=== PATIENT | female | born 1990 ===

== ENCOUNTER 2025-06-10 06:35 | Day surgery (SDC) | payer BC, SELFPAY ==
[2025-06-06 11:55] LABS: Hematocrit 41.6 % (37.0-47.0); Hemoglobin 13.8 g/dL (12.0-16.0); Mean Corp Hgb Conc. 33.2 g/dL (33.0-37.0); Mean Corpuscular Volume 87.0 fL (81.0-99.0); Platelet Count 250 10^3/uL (130-400); Red Cell Dist. Width 13.0 % (11.5-14.5)
[2025-06-06 12:02] LABS: INR 1.03; PT 13.6 Sec (11.4-14.6)
[2025-06-06 12:03] LABS: APTT 29.4 Sec (23.4-35.0)
[2025-06-06 12:42] LABS: ALT (SGPT) 12 U/L (0-35); AST (SGOT) 19 U/L (14-36); Albumin 4.6 g/dl (3.5-5.0); Alkaline Phosphatase 51 U/L (38-126); Blood Urea Nitrogen 14 mg/dl (7-17); Calcium 9.4 mg/dl (8.4-10.2); Carbon Dioxide 27 mmol/L (22-30); Chloride 102 mmol/L (98-107); Glucose 98 mg/dl (70-99); Potassium 4.1 mmol/L (3.5-5.1); Sodium 138 mmol/L (135-145); Total Protein 7.6 g/dl (6.3-8.2); eGFR > 60.00
[2025-06-06 13:18] VITALS: BMI 26.3
[2025-06-10] VITALS (8 sets, daily range): BP systolic 113–137; BP diastolic 62–89; BMI 26.3
[2025-06-10] MEDS: NORMOSOL-R/PLASMALYTE-A 1000 IV (12:47)
[2025-06-10] MEDS: NEURONTIN 300 MG PO (12:48)
[2025-06-10] MEDS: TYLENOL 1000 MG PO (12:48)
[2025-06-10] MEDS: HEPARIN 5000 UNITS SC (14:51)
[2025-06-10] MEDS: DILAUDID 0.25 MG IV (16:41)
[2025-06-10] MEDS: ROXICODONE 5 MG PO (17:52)
--- NOTE | 2025-06-10 18:34 | OR.RPT ---
Operative Report
Operative Report
DATE OF OPERATION: June 10, 2025
PREOPERATIVE DIAGNOSIS: Right Thyroid Cancer - C73
POSTOPERATIVE DIAGNOSIS: Same
SURGEON: Demetri Oropeza M.D.
OPERATION: Right Total Thyroidectomy and Limited Neck Dissection - 28823
ANESTHESIA: GET
ESTIMATED BLOOD LOSS: 5 cc
DRAINS: None
SPECIMEN: right total thyroid lobe and isthmus, and right level paratracheal tissue
FINDINGS: Right thyroid nodule
COMPLICATIONS: None
PROCEDURE:
The patient was taken to the operating room and placed in the usual supine position. After adequate general endotracheal anesthesia was established, the patient�s neck was extended, prepped, and draped in the typical sterile fashion. A 5 cm
transcervical incision was made two fingerbreadths above the sternal notch. The skin incision was made with the #15 blade, which was taken through the skin into the subcutaneous tissue. The underlying platysma muscle was divided, and subplatysmal
flaps were created superiorly to the thyroid cartilage and inferiorly to the sternal notch. Strap muscles were identified and at the midline.
Attention was turned to the patient�s right thyroid lobe. The right thyroid lobe was mobilized medially. During this process, the right middle thyroid vein and inferior thyroid artery were dissected and ligated with Ligasure. Next, the right
superior pole was taken down by dissecting and transecting the superior pole vessels with a Ligasure. The right thyroid lobe was mobilized medially. During this process, the right recurrent laryngeal nerve was identified and preserved throughout its
entire course. The right superior parathyroid gland was identified and preserved. The right thyroid lobe with isthmus was resected from the trachea and sent to the pathology department.
During this process, the left recurrent laryngeal nerve was identified and preserved throughout its entire course. The left superior parathyroid gland was identified and preserved. The left thyroid lobe with isthmus was resected from the trachea and
sent to the pathology department.
At this time, the right neck dissection was performed. The tissue between the right carotid artery to the trachea into the anterior mediastinum was carefully dissected. The previously identified recurrent laryngeal nerve and parathyroid glands were
preserved. The tissue was removed and sent to the pathology department.
After achieving adequate hemostasis, the strap muscle was approximated with #3-0 Vicryl in a running fashion, and the platysma muscles were reapproximated with #3-0 Vicryl in an interrupted manner. The skin was then closed with #4-0 Monocryl in a
running subcuticular technique. Steri-strips and sterile dressings were applied. The patient tolerated the procedure well. The final instrument, needle, and sponge counts were correct.
== END 2025-06-10 18:11 | disposition home or self-care (01) ==
LOC: SDS 06:35
PROVIDERS: ATTENDING PHYSICIAN Surgery; FAMILY PHYSICIAN Internal Medicine
DX: C73 Malignant neoplasm of thyroid gland (principal); C77.1 Secondary and unspecified malignant neoplasm of intrathoracic lymph nodes; E04.1 Nontoxic single thyroid nodule
CPT/HCPCS: 60252; 36415; 80053; 85027; 85610; 85730; 88307; 88342; 93005